=== PATIENT | male | born 1935 | race Hispanic/Latino ===

== ENCOUNTER 2018-10-20 13:04 | Inpatient (IN) | payer MEDICARE, MEDICAID ==
[2018-10-20 13:04] VITALS: BMI 28.3
--- NOTE | 2018-10-20 15:01 | ED PDOC ---
HPI: Back Time Seen by Provider: 10/20/18 13:19 Chief Complaint (Nursing): Back Pain Chief Complaint (Provider): Back Pain History Per: Patient History/Exam Limitations: no limitations Onset/Duration Of Symptoms: Persistent Current Symptoms Are (Timing): Still Present Quality Of Discomfort: "Pain" Pain Scale Rating Of: 9 Previous Symptoms: Back Pain Associated Symptoms: None Additional Complaint(s): 83 year old male with a history sciatica, herniated lumbar discs, diabetes and HTN presents to the ED with recurrent sciatica pain. Patient received an epidural shot less than one month ago with improvement, but not resolution of symptoms. This morning, when he tried to stand, the pain became severe and he was unable to bear weight on his legs. Patient states the pain is shooting down his right leg. He reports taking Tylenol today with no relief and he last took Advil yesterday. Patient saw his PMD a week ago and mentioned acute right calf pain and cramping on getting out of the car. He was then referred for a lower extremity US which he has not done yet. Denies fecal or urinary incontinence, fever, chills and leg weakness. PMD: Ronnie Webster - Risk Factors AAA Risk Factors: Pos: Older Than 49 Years Of Age, Hypertension Past Medical History Reviewed: Historical Data, Nursing Documentation, Vital Signs Vital Signs: Last Vital Signs Temp 97.8 F 10/20/18 13:11 Pulse 66 10/20/18 13:11 Resp 16 10/20/18 13:11 BP 195/91 H 10/20/18 13:11 Pulse Ox 99 10/20/18 13:11 Primary Care Provider: Ronnie Webster - Medical History PMH: Gastritis, HTN Denies: Chronic Kidney Disease - Surgical History Surgical History: Cholecystectomy - Family History Family History: States: Unknown Family Hx - Social History Ex-Smoker (has not smoked in the last 12 months): Yes - Home Medications Home Medications: Ambulatory Orders Medication Instructions Recorded Aspirin [Ecotrin] 81 mg PO DAILY 10/20/18 Cu/Se/Vit A/Vit C/Vit E/Zinc 1 tab PO DAILY 10/20/18 [Ocuvite] Docusate [Colace] 200 mg PO HS 10/20/18 Esomeprazole Magnesium [Nexium] 40 mg PO DAILY 10/20/18 Glipizide [Glipizide ER] 10 mg PO DAILY 10/20/18 Nebivolol [Bystolic] 10 mg PO DAILY 10/20/18 Pioglitazone [Actos] 15 mg PO DAILY 10/20/18 Travoprost [Travatan Z] 1 drop EACHEYE HS 10/20/18 - Allergies Allergies/Adverse Reactions: Allergies Allergy/AdvReac Type Severity Reaction Status Date / Time ciprofloxacin Allergy ANAPHYLAXIS Verified 10/20/18 13:11 Review of Systems ROS Statement: Except As Marked, All Systems Reviewed And Found Negative Constitutional: Negative for: Fever, Chills, Weakness Genitourinary Male: Negative for: Incontinence (fecal or urinary) Musculoskeletal: Positive for: Back Pain, Leg Pain Physical Exam - Reviewed Nursing Documentation Reviewed: Yes Vital Signs Reviewed: Yes - Physical Exam Appears: Positive for: Uncomfortable Back: Positive for: Decreased ROM (with flexion of the back due to pain), Other (tenderness on palpation to right lumbar paravertebral area with tenderness to the right buttock also) Extremity: Positive for: Normal ROM (Normal flexion and extension of bilateral hips and knees ), Calf Tenderness (tenderness on palpation to right calf noted; no cords or nodules noted), Other (sensation to light touch intact to bilateral lower extremities). Negative for: Swelling Neurological/Psych: Positive for: Awake, Alert, Normal Tone, Oriented (x 3). Negative for: Motor/Sensory Deficits - Laboratory Results Result Diagrams: 10/20/18 16:48 10/20/18 16:48 - ECG O2 Sat by Pulse Oximetry: 99 (RA) Pulse Ox Interpretation: Normal Medical Decision Making Medical Decision Makin:05 MDM: Toradol 30 mg IM x 1 Flexeril 10 mg PO x 1 Bilateral LE venous Duplex US 15:40 Upon re-evaluation, the patient reports no improvement of pain. Lidoderm patch and Tylenol 975 mg PO x 1 ordered. IV insertion, CBC, CMP and mag ordered. 16:20 US FINDINGS: COMMON FEMORAL VEIN: Right CFV: Unremarkable. Left CFV: Unremarkable. SUPERFICIAL FEMORAL VEIN: Right SFV: Unremarkable. Left SFV: Unremarkable. POPLITEAL VEIN: Right Popliteal: Unremarkable. Left Popliteal: Unremarkable. POSTERIOR TIBIAL VEIN: Right PTV: Unremarkable. Left PTV: Unremarkable. OTHER FINDINGS: None. IMPRESSION: No sonographic evidence of deep venous thrombosis bilateral lower extremities. 16:45 Pain is unchanged. Morphine 2 mg IV ordered. Case discussed with patient's PMD, Dr. Gillis, who will accept admission for intractable back pain. He requests Dr. Barker for orthopedic consult Consult is placed, awaiting return call. 16:55: I spoke with Dr. Barker who will see patient tomorrow. Scribe Attestation: Documented by Tess Bustamante, acting as a scribe Tamera Magaña Provider Scribe Attestation: All medical record entries made by the Scribe were at my direction and personally dictated by me. I have reviewed the chart and agree that the record accurately reflects my personal performance of the history, physical exam, medical decision making, and the department course for this patient. I have also personally directed, reviewed, and agree with the discharge instructions and disposition. Disposition - Clinical Impression Clinical Impression: Intractable low back pain - Patient ED Disposition Is Patient to be Admitted: Yes - Disposition Disposition: Transfer of Care Disposition Time: 17:03 Condition: IMPROVED - Pt Status Changed To: Hospital Disposition Of: Inpatient - Admit Certification Admit to Inpatient:: After my assessment, the patient will require hospitaliz ation for at least two midnights. This is because of the severity of symptoms shown, intensity of services needed, and/or the medical risk in this patient being treated as an outpatient.
[2018-10-20] MEDS ORDERED: Lidocaine 5% Patch TD ONE (15:18)
[2018-10-20] MEDS: Lidocaine 5% Patch TD SCH (15:24)
--- NOTE | 2018-10-20 16:48 | US ---
Date of service: 10/20/2018 PROCEDURE: Bilateral lower extremity venous duplex Doppler. HISTORY: acute RLE cramp/pain COMPARISON: None available. TECHNIQUE: Bilateral common and superficial femoral, popliteal and posterior tibial veins were evaluated. Flow was assessed with color Doppler, graded compressibility, assessment of phasic flow and augmentation response. FINDINGS: COMMON FEMORAL VEIN: Right CFV: Unremarkable. Left CFV: Unremarkable. SUPERFICIAL FEMORAL VEIN: Right SFV: Unremarkable. Left SFV: Unremarkable. POPLITEAL VEIN: Right Popliteal: Unremarkable. Left Popliteal: Unremarkable. POSTERIOR TIBIAL VEIN: Right PTV: Unremarkable. Left PTV: Unremarkable. OTHER FINDINGS: None. IMPRESSION: No sonographic evidence of deep venous thrombosis bilateral lower extremities.
[2018-10-20 16:52] LABS: BASO # 0.1 K/uL (0.0-0.2); BASO % 0.9 % (0.0-2.0); EOS # 0.1 K/uL (0.0-0.7); EOS % 1.8 % (0.0-4.0); HEMOGLOBIN 14.2 g/dL (12.0-18.0); LYMPH # 1.1 K/uL (1.0-4.3); LYMPH % 17.5 % (20.0-40.0); MEAN CELL VOLUME 85.4 fl (80.0-94.0); MEAN CORPUSCULAR HEMOGLOBIN 29.7 pg (27.0-31.0); MEAN CORPUSCULAR HGB CONC 34.8 g/dL (33.0-37.0); MEAN PLATELET VOLUME 8.9 fl (7.2-11.7); MONO # 0.5 K/uL (0.0-0.8); MONO % 7.1 % (0.0-10.0); NEUT # 4.6 K/uL (1.8-7.0); NEUT % 72.7 % (50.0-75.0); NRBC % 0.1 % (0.0-0.0); RBC 4.79 Mil/uL (4.40-5.90); RED CELL DISTRIBUTION WIDTH 15.3 % (11.5-14.5); WHITE BLOOD COUNT 6.3 K/uL (4.8-10.8)
[2018-10-20 17:03] LABS: ALB/GLOB RATIO 1.3 (1.0-2.1); ALT/SGPT 30 U/L (21-72); AST/SGOT 32 U/L (17-59); BLOOD UREA NITROGEN 23 mg/dl (9-20); CALCIUM 9.4 mg/dL (8.4-10.2); GFR NON-AFRICAN AMERICAN > 60
--- NOTE | 2018-10-20 19:50 | CP.PCM.HP ---
History of Present Illness - History of Present Illness History of Present Illness: 83 year old male with a history sciatica, herniated lumbar discs, diabetes and HTN presents to the ED with recurrent sciatica pain. Patient received an epidural shot less than one month ago with minimal improvement . This morning, when he tried to stand, the pain became severe and he was unable to bear weight on his legs. Patient states the pain is shooting down his right leg. He reports taking Tylenol today with no relief and he last took Advil yesterday. Pt has had sciatica since 08/06 PMH: DMII Hypertension Hyperlipidemia COPD CA Prostate Present on Admission - Present on Admission Any Indicators Present on Admission: No Past Patient History - Past Medical History & Family History Past Medical History?: Yes - Past Social History Smoking Status: Former Smoker - CARDIAC Hx Hypertension: Yes - NEUROLOGICAL Hx Neurological Disorder: No - HEENT Hx HEENT Problems: Yes Hx Glaucoma: Yes - RENAL Hx Chronic Kidney Disease: No - ENDOCRINE/METABOLIC Hx Endocrine Disorders: Yes Hx Diabetes Mellitus Type 2: Yes - INTEGUMENTARY Hx Dermatological Problems: No - MUSCULOSKELETAL/RHEUMATOLOGICAL Hx Musculoskeletal Disorders: No Hx Falls: No - GASTROINTESTINAL Hx Gastritis: Yes - GENITOURINARY/GYNECOLOGICAL Hx Genitourinary Disorders: Yes Hx Prostate Cancer: Yes - PSYCHIATRIC Hx Psychophysiologic Disorder: No Hx Substance Use: No - SURGICAL HISTORY Hx Cholecystectomy: Yes - ANESTHESIA Hx Anesthesia: Yes Hx Anesthesia Reactions: No Hx Malignant Hyperthermia: No Meds Allergies/Adverse Reactions: Allergies Allergy/AdvReac Type Severity Reaction Status Date / Time ciprofloxacin Allergy ANAPHYLAXIS Verified 10/20/18 13:11 Results - Vital Signs Recent Vital Signs: Last Vital Signs Temp 98.9 F 10/20/18 19:01 Pulse 6 L 10/20/18 19:01 Resp 20 10/20/18 19:01 BP 170/76 H 10/20/18 19:01 Pulse Ox 95 10/20/18 19:01 - Labs Result Diagrams: 10/20/18 16:48 10/20/18 16:48 Labs: Laboratory Results - last 24 hr 10/20/18 10/20/18 16:48 16:48 WBC 6.3 RBC 4.79 Hgb 14.2 Hct 40.9 MCV 85.4 D MCH 29.7 MCHC 34.8 RDW 15.3 H Plt Count 171 D MPV 8.9 Neut % (Auto) 72.7 Lymph % (Auto) 17.5 L [place] % (Auto) 7.1 Eos % (Auto) 1.8 Baso % (Auto) 0.9 Neut # (Auto) 4.6 Lymph # (Auto) 1.1 [place] # (Auto) 0.5 Eos # (Auto) 0.1 Baso # (Auto) 0.1 Sodium 137 Potassium 4.1 Chloride 105 Carbon Dioxide 22 Anion Gap 14 BUN 23 H Creatinine 1.1 Est GFR ( Amer) > 60 Est GFR (Non-Af Amer) > 60 Random Glucose 108 Calcium 9.4 Total Bilirubin 1.5 H AST 32 ALT 30 Alkaline Phosphatase 77 Total Protein 7.1 Albumin 4.0 Globulin 3.0 Albumin/Globulin Ratio 1.3 Assessment & Plan (1) Sciatica associated with disorder of lumbar spine Status: Acute (2) Benign essential hypertension Status: Acute (3) DM w/o complication type II Status: Acute (4) Mixed hyperlipidemia Status: Acute (5) S/P cholecystectomy Status: Acute - Date & Time Date: 10/20/18 Time: 21:08
[2018-10-20] MEDS: Patient's Own Med (Travoprost [Travatan Z] 1 DROP) EACHEYE SCH (22:19)
[2018-10-20] MEDS: GlipiZIDE 10 mg SR Tab PO SCH (23:00)
[2018-10-21 06:25] LABS: BASO % 0.3 % (0.0-2.0); EOS # 0.2 K/uL (0.0-0.7); EOS % 5.2 % (0.0-4.0); HEMOGLOBIN 13.3 g/dL (12.0-18.0); LYMPH % 22.7 % (20.0-40.0); MEAN CELL VOLUME 85.8 fl (80.0-94.0); MEAN CORPUSCULAR HEMOGLOBIN 28.8 pg (27.0-31.0); MEAN CORPUSCULAR HGB CONC 33.5 g/dL (33.0-37.0); MEAN PLATELET VOLUME 9.1 fl (7.2-11.7); MONO # 0.2 K/uL (0.0-0.8); MONO % 4.9 % (0.0-10.0); NEUT # 3.1 K/uL (1.8-7.0); NEUT % 66.9 % (50.0-75.0); NRBC % 0.1 % (0.0-0.0); RBC 4.64 Mil/uL (4.40-5.90); RED CELL DISTRIBUTION WIDTH 15.4 % (11.5-14.5); WHITE BLOOD COUNT 4.6 K/uL (4.8-10.8)
[2018-10-21 06:36] LABS: BLOOD UREA NITROGEN 21 mg/dl (9-20); CALCIUM 9.1 mg/dL (8.4-10.2); GFR NON-AFRICAN AMERICAN 53
[2018-10-21] MEDS: Lidocaine 5% Patch TD SCH (08:21)
[2018-10-21] MEDS: Pantoprazole 40 mg EC Tab PO SCH (08:23)
[2018-10-21] MEDS: GlipiZIDE 10 mg SR Tab PO SCH ×2 (08:24→16:44)
--- NOTE | 2018-10-21 08:44 | CP.PCM.CON ---
History of Present Illness - History of Present Illness History of Present Illness: Orthopedic consultation Dr. Barker 83M complains of severe intractable pain in low back and down right leg with inability to ambulate due to the pain. He has known lumbar herniated disc and has had 2 LESI for this, with temporary relief of symptoms. He says the pain is significantly worse that last evaluation, so he came to the ER. Denies change in bowel/bladder. Pain is severe and shoots down back of right leg. Denies numbness/tingling. Denies trauma and falls. PMH: DM, HTN, HLD, COPD, prostate CA Review of Systems - Review of Systems All systems: reviewed and no additional remarkable complaints except - Musculoskeletal Musculoskeletal: As Per HPI - Neurological Neurological: As Per HPI - Hematologic/Lymphatic Hematologic: absent: As Per HPI, Easy Bleeding, Easy Bruising, Lymphadenopathy, Other Past Patient History - Past Medical History & Family History Past Medical History?: Yes Past Family History: Reviewed and not pertinent - Past Social History Smoking Status: Former Smoker - CARDIAC Hx Hypertension: Yes - NEUROLOGICAL Hx Neurological Disorder: No - HEENT Hx HEENT Problems: Yes Hx Glaucoma: Yes - RENAL Hx Chronic Kidney Disease: No - ENDOCRINE/METABOLIC Hx Endocrine Disorders: Yes Hx Diabetes Mellitus Type 2: Yes - INTEGUMENTARY Hx Dermatological Problems: No - MUSCULOSKELETAL/RHEUMATOLOGICAL Hx Musculoskeletal Disorders: No Hx Falls: No - GASTROINTESTINAL Hx Gastritis: Yes - GENITOURINARY/GYNECOLOGICAL Hx Genitourinary Disorders: Yes Hx Prostate Cancer: Yes - PSYCHIATRIC Hx Psychophysiologic Disorder: No Hx Substance Use: No - SURGICAL HISTORY Hx Cholecystectomy: Yes - ANESTHESIA Hx Anesthesia: Yes Hx Anesthesia Reactions: No Hx Malignant Hyperthermia: No Meds Allergies/Adverse Reactions: Allergies Allergy/AdvReac Type Severity Reaction Status Date / Time ciprofloxacin Allergy ANAPHYLAXIS Verified 10/21/18 11:57 - Medications Medications: Current Medications Aspirin (Ecotrin) 81 mg PO DAILY [facility] Last Admin: 10/21/18 08:21 Dose: 81 mg Docusate Sodium (Colace) 200 mg PO [facility] Last Admin: 10/20/18 22:19 Dose: 200 mg Glipizide (Glucotrol Xl) 10 mg PO DAILY@1700 [facility] Home Med (Travoprost [Travatan Z]) 1 drop EACHEYE [facility] Last Admin: 10/20/18 22:19 Dose: 1 drop Lidocaine (Lidoderm) 1 ea TD DAILY [facility] Last Admin: 10/21/18 08:21 Dose: 1 ea Metoprolol Tartrate (Lopressor) 50 mg PO Q12 [facility] Last Admin: 10/21/18 08:24 Dose: 50 mg Morphine Sulfate (Morphine) 2 mg IVP Q4 PRN PRN Reason: Pain, moderate (4-7) Last Admin: 10/21/18 05:10 Dose: 2 mg Pantoprazole Sodium (Protonix Ec Tab) 40 mg PO DAILY [facility] Last Admin: 10/21/18 08:23 Dose: 40 mg Pioglitazone HCl (Actos) 15 mg PO DAILY [facility] Last Admin: 10/21/18 08:13 Dose: 15 mg Physical Exam - Constitutional Appears: Well, In Acute Distress - Head Exam Head Exam: ATRAUMATIC - Neck Exam Neck exam: Positive for: Full Rom, Normal Inspection - Respiratory Exam Respiratory Exam: NORMAL BREATHING PATTERN - Cardiovascular Exam Additional comments: +DP/PT pulses - Expanded Lower Extremities Exam Right Ankle exam: FULL ROM, NORMAL INSPECTION Neuro vacular tendon exam: no vascular compromise (calves soft NT neg homans) - Neurological Exam Neurological exam: Alert, Oriented x3 - Psychiatric Exam Psychiatric exam: Normal Affect, Normal Mood - Skin Skin Exam: Dry, Intact, Normal Color, Warm Results - Vital Signs Recent Vital Signs: Last Vital Signs Temp 98.7 F 10/21/18 08:03 Pulse 65 10/21/18 08:24 Resp 18 10/21/18 08:03 BP 174/79 H 10/21/18 08:24 Pulse Ox 93 L 10/21/18 08:03 - Labs Result Diagrams: 10/21/18 05:50 10/21/18 05:50 Labs: Laboratory Results - last 24 hr 10/20/18 10/20/18 10/20/18 16:48 16:48 21:09 WBC 6.3 RBC 4.79 Hgb 14.2 Hct 40.9 MCV 85.4 D MCH 29.7 MCHC 34.8 RDW 15.3 H Plt Count 171 D MPV 8.9 Neut % (Auto) 72.7 Lymph % (Auto) 17.5 L [place] % (Auto) 7.1 Eos % (Auto) 1.8 Baso % (Auto) 0.9 Neut # (Auto) 4.6 Lymph # (Auto) 1.1 [place] # (Auto) 0.5 Eos # (Auto) 0.1 Baso # (Auto) 0.1 Sodium 137 Potassium 4.1 Chloride 105 Carbon Dioxide 22 Anion Gap 14 BUN 23 H Creatinine 1.1 Est GFR ( Amer) > 60 Est GFR (Non-Af Amer) > 60 POC Glucose (mg/dL) 214 H Random Glucose 108 Calcium 9.4 Total Bilirubin 1.5 H AST 32 ALT 30 Alkaline Phosphatase 77 Total Protein 7.1 Albumin 4.0 Globulin 3.0 Albumin/Globulin Ratio 1.3 10/21/18 10/21/18 10/21/18 05:41 05:50 05:50 WBC 4.6 L RBC 4.64 Hgb 13.3 Hct 39.8 MCV 85.8 MCH 28.8 MCHC 33.5 RDW 15.4 H Plt Count 157 MPV 9.1 Neut % (Auto) 66.9 Lymph % (Auto) 22.7 [place] % (Auto) 4.9 Eos % (Auto) 5.2 H Baso % (Auto) 0.3 Neut # (Auto) 3.1 Lymph # (Auto) 1.0 [place] # (Auto) 0.2 Eos # (Auto) 0.2 Baso # (Auto) 0.0 Sodium 139 Potassium 3.9 Chloride 105 Carbon Dioxide 26 Anion Gap 12 BUN 21 H Creatinine 1.3 Est GFR ( Amer) > 60 Est GFR (Non-Af Amer) 53 POC Glucose (mg/dL) 78 Random Glucose 79 Calcium 9.1 Total Bilirubin AST ALT Alkaline Phosphatase Total Protein Albumin Globulin Albumin/Globulin Ratio - EKG Data EKG comments: atient Name / ID : MIKE RIVERA M / [id number] Exam Date : 10/21/2018 10:18:38 ( Approved ) Study Comment : Sex / Age : M / 83Y Creator : Jai Dickson MD Dictator : Jai Dickson MD Sox Analyst : Special Tax Auditor : Jai Dickson MD Approver2 : Report Date : 10/21/2018 11:50:34 My Comment : Date of service: 10/21/2018 PROCEDURE: MR LUMBAR SPINE WITHOUT CONTRAST HISTORY: sciatica COMPARISON: Lumbar spine MRI without contrast 08/20/2018 as well as 08/10/2015. TECHNIQUE: Multiecho multiplanar sequences were performed through the lumbar spine without the use of intravenous contrast. FINDINGS: Normal lumbar lordosis interrupted by stable grade 1 spondylolisthesis L5-S1. Vertebral body heights are preserved. Abnormal increased long TR signal is seen at the L4 vertebral body once again of uncertain origin. While this could represent an atypical benign hemangioma and is unchanged compared prior lumbar spine MRI 08/10/2015 rendering this a benign process. Conus medullaris unremarkable at the level of L1. Prevertebral and paraspinal soft tissues remain unremarkable. Note is made once again of multiple bilateral renal cysts greater the left and right kidney only partially captured in this examination. T12-L1: No disc herniation, spinal canal stenosis or neural foraminal narrowing. L1-2: No disc herniation, spinal canal stenosis or neural foraminal narrowing. L2-3: No disc herniation, spinal canal stenosis or neural foraminal narrowing. L3-4: No disc herniation, spinal canal stenosis or neural foraminal narrowing. Limited disc bulging is again seen inverting the ventral thecal sac without st enosis. L4-5: Prior disc herniation appears desiccated and is dark in signal across numerous sequences impinging the exiting right L4 nerve root from below. Disc herniation may have increased in size which would indicate further extrusion in the interval with the right lateral recess completely obliterated and portion of the disc causes moderate to severe right neural foraminal stenosis. Additional minimal disc extrusion is suggested at the left lateral recess as well in the posterior epidural space. Both disc herniations are extruded cephalad. Due to large posterior disc bulge and gross facet joint degenerative change including joint effusions, there is a severe central canal stenosis inferior to the level of the disc herniations at the level of the disc interspace., posterior element degenerative arthropathy including synovial cysts contribute to stenosis at L4- 5. L5-S1: Facet joint arthropathy is advanced with no disc herniation at this level. Limited disc bulge is reiterated with limited grade 1 spondylolisthesis due to bilateral spondylolysis. Annular tear reiterated. While there is some elongation of the central canal and neural foramina, no significant stenosis is appreciated in the interval. OTHER FINDINGS: None. IMPRESSION: 1. Likely added extruded disc herniation is appreciated cephalad at the right lateral recess and neural foramen causing moderate to severe right neural foraminal stenosis and obliteration of the right lateral recess superiorly. Rig ht exiting L4 nerve root is likely impinged. Further, moderate to severe degenerative central stenosis appreciated more inferiorly at the disc space proper, inferior to the disc herniation. 2. Stable grade 1 spondylolisthesis L5-S1 with bilateral L5 spondylolysis without significant stenosis. - Impressions Impression: Patient Name / ID : MIKE Garcia / [id number] Exam Date : 10/20/2018 15:47:25 ( Approved ) Study Comment : Sex / Age : M / 83Y Creator : shukri hilton Dictator : Jai Dickson MD Sox Analyst : Special Tax Auditor : Jai Dickson MD Approver2 : Report Date : 10/20/2018 16:19:33 My Comment : Date of service: 10/20/2018 PROCEDURE: Bilateral lower extremity venous duplex Doppler. HISTORY: acute RLE cramp/pain COMPARISON: None available. TECHNIQUE: Bilateral common and superficial femoral, popliteal and posterior tibial veins were evaluated. Flow was assessed with color Doppler, graded compressibility, assessment of phasic flow and augmentation response. FINDINGS: COMMON FEMORAL VEIN: Right CFV: Unremarkable. Left CFV: Unremarkable. SUPERFICIAL FEMORAL VEIN: Right SFV: Unremarkable. Left SFV: Unremarkable. POPLITEAL VEIN: Right Popliteal: Unremarkable. Left Popliteal: Unremarkable. POSTERIOR TIBIAL VEIN: Right PTV: Unremarkable. Left PTV: Unremarkable. OTHER FINDINGS: None. IMPRESSION: No sonographic evidence of deep venous thrombosis bilateral lower extremities. Accession No. : [id number] Patient Name / ID : MIKE Garcia / [id number] Exam Date : 08/20/2018 14:23:39 ( Approved ) Study Comment : Sex / Age : M / 82Y Creator : Jai Dickson MD Dictator : Jai Dickson MD Sox Analyst : Special Tax Auditor : Jai Dickson MD Approver2 : Report Date : 08/25/2018 13:36:10 My Comment : Date of service: 08/20/2018 PROCEDURE: MR LUMBAR SPINE WITHOUT CONTRAST HISTORY: SCIATICA COMPARISON: None available. TECHNIQUE: Multiecho multiplanar sequences were performed through the lumbar spine without the use of intravenous contrast. FINDINGS: Lordotic curvature is interrupted minimally by a stable grade 1 spondylolisthesis once again with L5 minimally anterior to S1 due to bilateral spondylolysis. No additional spondylolisthesis. No additional fracture appreciable. Vertebral body heights are preserved. Stable sclerotic lesion unchanged at the left side of the L5 vertebral body with an atypical likely benign hemangioma at L4 once again as well. Conus medullaris unremarkable at the level of L1 once again. Prevertebral and paraspinal soft tissues remain unremarkable. Incidental note is made of lower pole bilateral renal hyperintense T2 foci suggestive of cysts. T12-L1: No disc herniation, spinal canal stenosis or neural foraminal narrowing. L1-2: No disc herniation, spinal canal stenosis or neural foraminal narrowing. L2-3: Desiccated disc greater without disc herniation, central canal or neural foraminal stenosis. Facet joint arthropathy is moderate but symmetric. L3-4: No disc herniation. [id number] facet arthropathy is appreciated bilate rally. No significant central canal or neural foraminal stenosis. L4-5: There is 7.7 x 5.5 x 11.7 mm (transverse by anteroposterior by superoinferior dimensions) soft tissue lesion appearing to follow intervertebral disc signal intensity across all sequences identified at the right recess posterior to the mid inferior posterior borders of the L4 vertebral body. This is closer to the L4-5 than L5-S1 intervertebral disc space and is felt to represent a small extruded disc herniation. This encroaches if not impinges the the L4 nerve root proximal to entry into the neural foramen. Circumferential disc osteophyte complex is appreciated inverting the ventral thecal sac and combines with gross facet joint degenerative arthropathy, which has worsened in the interval, resulting in moderate central canal stenosis. No significant neural foraminal stenosis bilaterally. L5-S1: One spondylolisthesis is minimal and minimal disc bulging identified. No disc herniation. No significant neural foraminal stenosis with neural foramen appearing somewhat elongated. Minimal annular tear at the posterior margins of the vertebral disc is noted. OTHER FINDINGS: None. IMPRESSION: 1. Ytho-we-wumlvvao extruded disc herniation is identified at the right lateral recess posterior to L4 and above the L4-5 disc interspace in coating if not impinging the descending right L4 nerve root proximal to its neural foramen further, degenerative central canal stenosis is moderate in severity at L4-5 due to circumferential disc osteophyte complex and bilateral dose facet joint degenerative arthropathy. 2. No definite additional disc herniation. 3. No significant neural foraminal stenosis throughout the exam. Stable L5-S1 posterior disc annular tear. Stable L5-S1 spondylolysis, grade 1. Assessment & Plan (1) Herniation of right side of L4-L5 intervertebral disc Assessment and Plan: case discussed with Dr. Barker recommend pain mgmt consultation Dr. Mccord PT VTE proph new MRI pending Addendum: new MRI and pain mgmt consult Dr. Mccord appreciated significant interval worsening of herniated disc with severe right neural foraminal stenosis now and severe central canal stenosis at that level this is outside of the scope of Dr. Barker's practice, recommend spine surgery consultation at this time d/w Dr. Barker, agrees with above Status: Acute (2) Spondylolisthesis at L5-S1 level Status: Acute (3) Lumbar spinal stenosis Status: Acute (4) Intractable low back pain Status: Acute
[2018-10-21] MEDS ORDERED: GlipiZIDE 10 mg SR Tab PO SCH (09:00)
--- NOTE | 2018-10-21 09:44 | CP.PCM.CON ---
History of Present Illness - History of Present Illness History of Present Illness: Patient presents with acute on chronic lower back pain and has been referred for pain management. He developed the pain in Jul, and has had two epidurals by Dr. Loredo with moderate and transient relief. He awoke yesterday with severe pain, in the right buttock, and also right lower lateral calf, to the point that he couldn't walk. As an outpatient, he tried Percocet without relief. Toradol and Morphine IV haven't helped significantly since admission. MRI from August showed extruded disc at L4-5, new MRI has been ordered and is pending. Past Patient History - Past Medical History & Family History Past Medical History?: Yes - Past Social History Smoking Status: Former Smoker - CARDIAC Hx Hypertension: Yes - NEUROLOGICAL Hx Neurological Disorder: No - HEENT Hx HEENT Problems: Yes Hx Glaucoma: Yes - RENAL Hx Chronic Kidney Disease: No - ENDOCRINE/METABOLIC Hx Endocrine Disorders: Yes Hx Diabetes Mellitus Type 2: Yes - INTEGUMENTARY Hx Dermatological Problems: No - MUSCULOSKELETAL/RHEUMATOLOGICAL Hx Musculoskeletal Disorders: No Hx Falls: No - GASTROINTESTINAL Hx Gastritis: Yes - GENITOURINARY/GYNECOLOGICAL Hx Genitourinary Disorders: Yes Hx Prostate Cancer: Yes - PSYCHIATRIC Hx Psychophysiologic Disorder: No Hx Substance Use: No - SURGICAL HISTORY Hx Cholecystectomy: Yes - ANESTHESIA Hx Anesthesia: Yes Hx Anesthesia Reactions: No Hx Malignant Hyperthermia: No Meds Allergies/Adverse Reactions: Allergies Allergy/AdvReac Type Severity Reaction Status Date / Time ciprofloxacin Allergy ANAPHYLAXIS Verified 10/20/18 13:11 - Medications Medications: Current Medications Aspirin (Ecotrin) 81 mg PO DAILY [facility] Last Admin: 10/21/18 08:21 Dose: 81 mg Docusate Sodium (Colace) 200 mg PO [facility] Last Admin: 10/20/18 22:19 Dose: 200 mg Glipizide (Glucotrol Xl) 10 mg PO DAILY@1700 [facility] Home Med (Travoprost [Travatan Z]) 1 drop EACHEYE [facility] Last Admin: 10/20/18 22:19 Dose: 1 drop Lidocaine (Lidoderm) 1 ea TD DAILY [facility] Last Admin: 10/21/18 08:21 Dose: 1 ea Metoprolol Tartrate (Lopressor) 50 mg PO Q12 [facility] Last Admin: 10/21/18 08:24 Dose: 50 mg Morphine Sulfate (Morphine) 2 mg IVP Q4 PRN PRN Reason: Pain, moderate (4-7) Last Admin: 10/21/18 05:10 Dose: 2 mg Pantoprazole Sodium (Protonix Ec Tab) 40 mg PO DAILY [facility] Last Admin: 10/21/18 08:23 Dose: 40 mg Pioglitazone HCl (Actos) 15 mg PO DAILY [facility] Last Admin: 10/21/18 08:13 Dose: 15 mg Physical Exam - Back Exam Back exam: paraspinal tenderness, vertebral tenderness Additional comments: SLR negative on the right. Results - Vital Signs Recent Vital Signs: Last Vital Signs Temp 98.7 F 10/21/18 08:03 Pulse 65 10/21/18 08:24 Resp 18 10/21/18 08:03 BP 174/79 H 10/21/18 08:24 Pulse Ox 93 L 10/21/18 08:03 - Labs Result Diagrams: 10/21/18 05:50 10/21/18 05:50 Labs: Laboratory Results - last 24 hr 10/20/18 10/20/18 10/20/18 16:48 16:48 21:09 WBC 6.3 RBC 4.79 Hgb 14.2 Hct 40.9 MCV 85.4 D MCH 29.7 MCHC 34.8 RDW 15.3 H Plt Count 171 D MPV 8.9 Neut % (Auto) 72.7 Lymph % (Auto) 17.5 L [place] % (Auto) 7.1 Eos % (Auto) 1.8 Baso % (Auto) 0.9 Neut # (Auto) 4.6 Lymph # (Auto) 1.1 [place] # (Auto) 0.5 Eos # (Auto) 0.1 Baso # (Auto) 0.1 Sodium 137 Potassium 4.1 Chloride 105 Carbon Dioxide 22 Anion Gap 14 BUN 23 H Creatinine 1.1 Est GFR ( Amer) > 60 Est GFR (Non-Af Amer) > 60 POC Glucose (mg/dL) 214 H Random Glucose 108 Calcium 9.4 Total Bilirubin 1.5 H AST 32 ALT 30 Alkaline Phosphatase 77 Total Protein 7.1 Albumin 4.0 Globulin 3.0 Albumin/Globulin Ratio 1.3 10/21/18 10/21/18 10/21/18 05:41 05:50 05:50 WBC 4.6 L RBC 4.64 Hgb 13.3 Hct 39.8 MCV 85.8 MCH 28.8 MCHC 33.5 RDW 15.4 H Plt Count 157 MPV 9.1 Neut % (Auto) 66.9 Lymph % (Auto) 22.7 [place] % (Auto) 4.9 Eos % (Auto) 5.2 H Baso % (Auto) 0.3 Neut # (Auto) 3.1 Lymph # (Auto) 1.0 [place] # (Auto) 0.2 Eos # (Auto) 0.2 Baso # (Auto) 0.0 Sodium 139 Potassium 3.9 Chloride 105 Carbon Dioxide 26 Anion Gap 12 BUN 21 H Creatinine 1.3 Est GFR ( Amer) > 60 Est GFR (Non-Af Amer) 53 POC Glucose (mg/dL) 78 Random Glucose 79 Calcium 9.1 Total Bilirubin AST ALT Alkaline Phosphatase Total Protein Albumin Globulin Albumin/Globulin Ratio Assessment & Plan (1) Herniation of right side of L4-L5 intervertebral disc Assessment and Plan: 83 yo man w/ lumbar radiculopathy. Patient may try another injection after the new MRI, though surgery has to be a consideration as he's failed two outpatient epidural already. - start Neurontin 100mg q8h - continue Morphine, increase dosage - pending new MRI result, would consider repeat epidural, likely Friday - if MRI showed severe stenosis, neurosurgery may need to be consulted Status: Acute
--- NOTE | 2018-10-21 11:56 | MRI ---
Date of service: 10/21/2018 PROCEDURE: MR LUMBAR SPINE WITHOUT CONTRAST HISTORY: sciatica COMPARISON: Lumbar spine MRI without contrast 08/20/2018 as well as 08/10/2015. TECHNIQUE: Multiecho multiplanar sequences were performed through the lumbar spine without the use of intravenous contrast. FINDINGS: Normal lumbar lordosis interrupted by stable grade 1 spondylolisthesis L5-S1. Vertebral body heights are preserved. Abnormal increased long TR signal is seen at the L4 vertebral body once again of uncertain origin. While this could represent an atypical benign hemangioma and is unchanged compared prior lumbar spine MRI 08/10/2015 rendering this a benign process. Conus medullaris unremarkable at the level of L1. Prevertebral and paraspinal soft tissues remain unremarkable. Note is made once again of multiple bilateral renal cysts greater the left and right kidney only partially captured in this examination. T12-L1: No disc herniation, spinal canal stenosis or neural foraminal narrowing. L1-2: No disc herniation, spinal canal stenosis or neural foraminal narrowing. L2-3: No disc herniation, spinal canal stenosis or neural foraminal narrowing. L3-4: No disc herniation, spinal canal stenosis or neural foraminal narrowing. Limited disc bulging is again seen inverting the ventral thecal sac without stenosis. L4-5: Prior disc herniation appears desiccated and is dark in signal across numerous sequences impinging the exiting right L4 nerve root from below. Disc herniation may have increased in size which would indicate further extrusion in the interval with the right lateral recess completely obliterated and portion of the disc causes moderate to severe right neural foraminal stenosis. Additional minimal disc extrusion is suggested at the left lateral recess as well in the posterior epidural space. Both disc herniations are extruded cephalad. Due to large posterior disc bulge and gross facet joint degenerative change including joint effusions, there is a severe central canal stenosis inferior to the level of the disc herniations at the level of the disc interspace., posterior element degenerative arthropathy including synovial cysts contribute to stenosis at L4-5. L5-S1: Facet joint arthropathy is advanced with no disc herniation at this level. Limited disc bulge is reiterated with limited grade 1 spondylolisthesis due to bilateral spondylolysis. Annular tear reiterated. While there is some elongation of the central canal and neural foramina, no significant stenosis is appreciated in the interval. OTHER FINDINGS: None. IMPRESSION: 1. Likely added extruded disc herniation is appreciated cephalad at the right lateral recess and neural foramen causing moderate to severe right neural foraminal stenosis and obliteration of the right lateral recess superiorly. Right exiting L4 nerve root is likely impinged. Further, moderate to severe degenerative central stenosis appreciated more inferiorly at the disc space proper, inferior to the disc herniation. 2. Stable grade 1 spondylolisthesis L5-S1 with bilateral L5 spondylolysis without significant stenosis.
[2018-10-21] MEDS: Patient's Own Med (Travoprost [Travatan Z] 1 DROP) EACHEYE SCH (21:05)
[2018-10-22] MEDS: Lidocaine 5% Patch TD SCH (08:22)
[2018-10-22] MEDS: Pantoprazole 40 mg EC Tab PO SCH (08:22)
--- NOTE | 2018-10-22 10:35 | CP.PCM.PN ---
Subjective - Date & Time of Evaluation Date of Evaluation: 10/22/18 Time of Evaluation: 10:00 - Subjective Subjective: Pt still has sciatic pain Case dicussed with Dr Barker pt needs neurosurgical consult for possible intervention MRI: L4-5 Disc herniation with impingement on L4 nerve root ++ Spinal stenosis Objective - Vital Signs/Intake and Output Vital Signs (last 24 hours): Temp Pulse Resp BP Pulse Ox 98.7 F 60 20 172/77 H 91 L 10/22/18 07:53 10/22/18 08:21 10/22/18 07:53 10/22/18 08:21 10/22/18 07:53 - Medications Medications: Current Medications Aspirin (Ecotrin) 81 mg PO DAILY [facility] Last Admin: 10/22/18 08:21 Dose: 81 mg Docusate Sodium (Colace) 200 mg PO HS [facility] Last Admin: 10/21/18 21:03 Dose: 200 mg Gabapentin (Neurontin) 100 mg PO TID [facility] Last Admin: 10/22/18 08:21 Dose: 100 mg Glipizide (Glucotrol Xl) 10 mg PO DAILY@1700 [facility] Last Admin: 10/21/18 16:44 Dose: 10 mg Home Med (Travoprost [Travatan Z]) 1 drop EACHEYE [facility] Last Admin: 10/21/18 21:05 Dose: 1 drop Lidocaine (Lidoderm) 1 ea TD DAILY [facility] Last Admin: 10/22/18 08:22 Dose: 1 ea Metoprolol Tartrate (Lopressor) 50 mg PO Q12 [facility] Last Admin: 10/22/18 08:21 Dose: 50 mg Morphine Sulfate (Morphine) 4 mg IVP Q4 PRN PRN Reason: Pain, severe (8-10) Last Admin: 10/21/18 23:07 Dose: 4 mg Pantoprazole Sodium (Protonix Ec Tab) 40 mg PO DAILY [facility] Last Admin: 10/22/18 08:22 Dose: 40 mg Pioglitazone HCl (Actos) 15 mg PO DAILY [facility] Last Admin: 10/22/18 08:20 Dose: 15 mg - Labs Labs: 10/21/18 05:50 10/21/18 05:50 Assessment and Plan (1) Herniation of right side of L4-L5 intervertebral disc Status: Acute (3) Benign essential hypertension Status: Acute (4) DM w/o complication type II Status: Acute (5) Mixed hyperlipidemia Status: Acute (6) S/P cholecystectomy Status: Acute
--- NOTE | 2018-10-22 11:37 | CARD ---
APPROVED REPORT Date of service: 10/22/2018 EKG Measurement Heart [id number] 192P5 [id number] <Conclusion> Normal sinus rhythm Inferior infarct, age undetermined Abnormal ECG
--- NOTE | 2018-10-22 11:40 | CP.PCM.CON ---
History of Present Illness - History of Present Illness History of Present Illness: SPINE Pt seen and examined. Full consult dictated. Pt sched for surgery tomorrow morning for L4-5 laminectomy/exc hnp. Past Patient History - Past Medical History & Family History Past Medical History?: Yes Past Family History: Reviewed and not pertinent - Past Social History Smoking Status: Former Smoker - CARDIAC Hx Hypertension: Yes - NEUROLOGICAL Hx Neurological Disorder: No - HEENT Hx HEENT Problems: Yes Hx Glaucoma: Yes - RENAL Hx Chronic Kidney Disease: No - ENDOCRINE/METABOLIC Hx Endocrine Disorders: Yes Hx Diabetes Mellitus Type 2: Yes - INTEGUMENTARY Hx Dermatological Problems: No - MUSCULOSKELETAL/RHEUMATOLOGICAL Hx Musculoskeletal Disorders: No Hx Falls: No - GASTROINTESTINAL Hx Gastritis: Yes - GENITOURINARY/GYNECOLOGICAL Hx Genitourinary Disorders: Yes Hx Prostate Cancer: Yes - PSYCHIATRIC Hx Psychophysiologic Disorder: No Hx Substance Use: No - SURGICAL HISTORY Hx Cholecystectomy: Yes - ANESTHESIA Hx Anesthesia: Yes Hx Anesthesia Reactions: No Hx Malignant Hyperthermia: No Meds Allergies/Adverse Reactions: Allergies Allergy/AdvReac Type Severity Reaction Status Date / Time ciprofloxacin Allergy ANAPHYLAXIS Verified 10/21/18 11:57 - Medications Medications: Current Medications Aspirin (Ecotrin) 81 mg PO DAILY [facility] Last Admin: 10/22/18 08:21 Dose: 81 mg Docusate Sodium (Colace) 200 mg PO [facility] Last Admin: 10/21/18 21:03 Dose: 200 mg Gabapentin (Neurontin) 100 mg PO TID [facility] Last Admin: 10/22/18 08:21 Dose: 100 mg Glipizide (Glucotrol Xl) 10 mg PO DAILY@1700 [facility] Last Admin: 10/21/18 16:44 Dose: 10 mg Home Med (Travoprost [Travatan Z]) 1 drop EACHEYE [facility] Last Admin: 10/21/18 21:05 Dose: 1 drop Lidocaine (Lidoderm) 1 ea TD DAILY [facility] Last Admin: 10/22/18 08:22 Dose: 1 ea Metoprolol Tartrate (Lopressor) 50 mg PO Q12 [facility] Last Admin: 10/22/18 08:21 Dose: 50 mg Morphine Sulfate (Morphine) 4 mg IVP Q4 PRN PRN Reason: Pain, severe (8-10) Last Admin: 10/22/18 10:53 Dose: 4 mg Pantoprazole Sodium (Protonix Ec Tab) 40 mg PO DAILY [facility] Last Admin: 10/22/18 08:22 Dose: 40 mg Pioglitazone HCl (Actos) 15 mg PO DAILY [facility] Last Admin: 10/22/18 08:20 Dose: 15 mg Results - Vital Signs Recent Vital Signs: Last Vital Signs Temp 98.7 F 10/22/18 07:53 Pulse 60 10/22/18 08:21 Resp 20 10/22/18 07:53 BP 172/77 H 10/22/18 08:21 Pulse Ox 91 L 10/22/18 07:53 - Labs Result Diagrams: 10/21/18 05:50 10/21/18 05:50 Labs: Laboratory Results - last 24 hr 10/21/18 10/22/18 17:30 05:54 POC Glucose (mg/dL) 105 146 H
--- NOTE | 2018-10-22 13:03 | CP.PCM.PN ---
Subjective - Date & Time of Evaluation Date of Evaluation: 10/22/18 Time of Evaluation: 13:02 - Subjective Subjective: The patient is scheduled for Surgery tomorrow AM by Dr Noe Myers LaminectomyL4-5 He is cleared for Surgery Objective - Vital Signs/Intake and Output Vital Signs (last 24 hours): Temp Pulse Resp BP Pulse Ox 98.7 F 60 20 172/77 H 91 L 10/22/18 07:53 10/22/18 08:21 10/22/18 07:53 10/22/18 08:21 10/22/18 07:53 - Medications Medications: Current Medications Aspirin (Ecotrin) 81 mg PO DAILY [facility] Last Admin: 10/22/18 08:21 Dose: 81 mg Docusate Sodium (Colace) 200 mg PO [facility] Last Admin: 10/21/18 21:03 Dose: 200 mg Gabapentin (Neurontin) 100 mg PO TID [facility] Last Admin: 10/22/18 12:42 Dose: 100 mg Glipizide (Glucotrol Xl) 10 mg PO DAILY@1700 [facility] Last Admin: 10/21/18 16:44 Dose: 10 mg Home Med (Travoprost [Travatan Z]) 1 drop EACHEYE [facility] Last Admin: 10/21/18 21:05 Dose: 1 drop Lidocaine (Lidoderm) 1 ea TD DAILY [facility] Last Admin: 10/22/18 08:22 Dose: 1 ea Metoprolol Tartrate (Lopressor) 50 mg PO Q12 [facility] Last Admin: 10/22/18 08:21 Dose: 50 mg Morphine Sulfate (Morphine) 4 mg IVP Q4 PRN PRN Reason: Pain, severe (8-10) Last Admin: 10/22/18 10:53 Dose: 4 mg Pantoprazole Sodium (Protonix Ec Tab) 40 mg PO DAILY [facility] Last Admin: 10/22/18 08:22 Dose: 40 mg Pioglitazone HCl (Actos) 15 mg PO DAILY [facility] Last Admin: 10/22/18 08:20 Dose: 15 mg - Labs Labs: 10/21/18 05:50 10/21/18 05:50 Assessment and Plan (1) Herniation of right side of L4-L5 intervertebral disc Status: Acute (3) Benign essential hypertension Status: Acute (4) DM w/o complication type II Status: Acute (5) Mixed hyperlipidemia Status: Acute (6) S/P cholecystectomy Status: Acute
--- NOTE | 2018-10-22 15:14 | CP.PCM.PN ---
Subjective - Date & Time of Evaluation Date of Evaluation: 10/22/18 Time of Evaluation: 15:14 - Subjective Subjective: patient states pain is the same down right leg, no changes overnight Objective - Vital Signs/Intake and Output Vital Signs (last 24 hours): Temp Pulse Resp BP Pulse Ox 98.7 F 60 20 172/77 H 91 L 10/22/18 09:00 10/22/18 09:00 10/22/18 09:00 10/22/18 09:00 10/22/18 09:00 - Medications Medications: Current Medications Aspirin (Ecotrin) 81 mg PO DAILY [facility] Last Admin: 10/22/18 08:21 Dose: 81 mg Docusate Sodium (Colace) 200 mg PO [facility] Last Admin: 10/21/18 21:03 Dose: 200 mg Gabapentin (Neurontin) 100 mg PO TID [facility] Last Admin: 10/22/18 12:42 Dose: 100 mg Glipizide (Glucotrol Xl) 10 mg PO DAILY@1700 [facility] Last Admin: 10/21/18 16:44 Dose: 10 mg Home Med (Travoprost [Travatan Z]) 1 drop EACHEYE [facility] Last Admin: 10/21/18 21:05 Dose: 1 drop Lidocaine (Lidoderm) 1 ea TD DAILY [facility] Last Admin: 10/22/18 08:22 Dose: 1 ea Metoprolol Tartrate (Lopressor) 50 mg PO Q12 [facility] Last Admin: 10/22/18 08:21 Dose: 50 mg Morphine Sulfate (Morphine) 4 mg IVP Q4 PRN PRN Reason: Pain, severe (8-10) Last Admin: 10/22/18 10:53 Dose: 4 mg Pantoprazole Sodium (Protonix Ec Tab) 40 mg PO DAILY [facility] Last Admin: 10/22/18 08:22 Dose: 40 mg Pioglitazone HCl (Actos) 15 mg PO DAILY [facility] Last Admin: 10/22/18 08:20 Dose: 15 mg - Labs Labs: 10/21/18 05:50 10/21/18 05:50 - Respiratory Exam Respiratory Exam: NORMAL BREATHING PATTERN - Back Exam Back Exam: paraspinal tenderness - Neurological Exam Neurological Exam: Alert, Awake, Oriented x3 Neuro motor strength exam: Left Lower Extremity: 5, Right Lower Extremity: 4 - Psychiatric Exam Psychiatric exam: Normal Affect, Normal Mood - Skin Skin Exam: Dry, Intact, Normal Color, Warm Assessment and Plan (1) Herniation of right side of L4-L5 intervertebral disc Assessment & Plan: spine consult appreciated, for OR tomorrow no orthopedic issues at this time, reconsult prn d/w DR. Barker, agrees with above Status: Acute (2) Spondylolisthesis at L5-S1 level Status: Acute (3) Lumbar spinal stenosis Status: Acute (4) Intractable low back pain Status: Acute
[2018-10-22] MEDS: GlipiZIDE 10 mg SR Tab PO SCH (17:50)
--- NOTE | 2018-10-22 18:21 | CARD ---
APPROVED REPORT Date of service: 10/22/2018 EXAM: Two-dimensional and M-mode echocardiogram with Doppler and color Doppler. Other Information Quality : GoodRhythm : NSR INDICATION LV Function:SystolicDiastolic 2D DIMENSIONS IVSd1.06 (0.7-1.1cm)LVDd4.81 (3.9-5.9cm) LVOT Diameter1.97 (1.8-2.4cm)PWd0.90 (0.7-1.1cm) IVSs1.44 (0.8-1.2cm)LVDs3.63 (2.5-4.0cm) FS (%) 24.6 %PWs1.26 (0.8-1.2cm) M-Mode DIMENSIONS Left Atrium (MM)5.44 (2.5-4.0cm)IVSd0.91 (0.7-1.1cm) Aortic Root2.79 (2.2-3.7cm)LVDd5.47 (4.0-5.6cm) Aortic Cusp Exc.1.82 (1.5-2.0cm)PWd1.12 (0.7-1.1cm) IVSs1.38 cmFS (%) 30 % LVDs3.85 (2.0-3.8cm)PWs1.21 cm Aortic Valve AoV Peak Izepvuzc623.8cm/sAoV VTI26.2cmAO Peak GR.6mmHg LVOT Peak Uebmgeka97.2cm/sLVOT VTI15.66cmAO Mean GR.3mmHg YANIRA (VMAX)0.97fe9TKY (VTI)1.00cm2 Mitral Valve MV E Xkzxhfjt99.8cm/sMV DECEL [id number] A Lmchxjfi83.3cm/s MV PYV28gpO/A ratio1.0MVA (PHT)3.70cm2 TDI Lateral E' Peak V10.84cm/sMedial E' Peak V5.54cm/sE/Lateral E'6.8 E/Medial E'13.3 Tricuspid Valve TR Peak Fgbsruou977jt/sRAP AVIZAVZW10mwQjMP Peak Gr.39mmHg [id number] LEFT VENTRICLE The left ventricle is normal size. There is normal left ventricular wall thickness. The left ventricular systolic function is low normal. The estimated ejection fraction is 50-55% No regional wall motion abnormalities noted.. Transmitral Doppler flow pattern is Grade I-abnormal relaxation pattern. No left ventricle thrombus noted on this study. There is no ventricular septal defect visualized. There is no left ventricular aneurysm. There is no mass noted in the left ventricle. RIGHT VENTRICLE The right ventricle is normal size. There is normal right ventricular wall thickness. The right ventricular systolic function is normal. ATRIA The left atrium is moderately dilated. The right atrium size is normal. The interatrial septum is intact with no evidence for an atrial septal defect. AORTIC VALVE The aortic valve is normal in structure. No aortic regurgitation is present. There is no aortic valvular stenosis. There is no aortic valvular vegetation. MITRAL VALVE The mitral valve is normal in structure. There is no evidence of mitral valve prolapse. There is no mitral valve stenosis. There is mild mitral valve regurgitation noted. TRICUSPID VALVE The tricuspid valve is normal in structure. There is moderate tricuspid valve regurgitation noted. RVSP is calculated at 48 mm Hg. There is no tricuspid valve prolapse or vegetation. There is no tricuspid valve stenosis. PULMONIC VALVE The pulmonary valve is normal in structure. There is mild pulmonic valvular regurgitation. There is no pulmonic valvular stenosis. GREAT VESSELS The aortic root is normal in size. The ascending aorta is normal in size. The pulmonary artery is normal. The IVC is normal in size and collapses >50% with inspiration. PERICARDIAL EFFUSION There is no pericardial effusion. There is no pleural effusion. <Conclusion> The left ventricular systolic function is low normal. The estimated ejection fraction is 50-55% Transmitral Doppler flow pattern is Grade I-abnormal relaxation pattern. The left atrium is moderately dilated. There is mild mitral valve regurgitation noted. There is moderate tricuspid valve regurgitation noted. RVSP is calculated at 48 mm Hg.
[2018-10-22] MEDS: Patient's Own Med (Travoprost [Travatan Z] 1 DROP) EACHEYE SCH (21:19)
[2018-10-22] MEDS ORDERED: Sodium Chloride 0.45% 1,000 ML IV SCH (21:45)
[2018-10-23] MEDS ORDERED: Succinylcholine 200 mg/10 ml Inj IV ONE (07:05)
[2018-10-23] MEDS ORDERED: Propofol 10 mg/ml Inj (20 ML) ONE (07:05)
[2018-10-23] MEDS ORDERED: Phenylephrine 10 mg/ml Inj ONE (07:06)
[2018-10-23] MEDS ORDERED: Etomidate 20 mg/10ml Inj IV ONE (07:06)
[2018-10-23] MEDS ORDERED: Propofol 10 mg/ml 1,000 MG/100 ML VIAL ONE (07:11)
[2018-10-23] MEDS ORDERED: Lidocaine 1% w Epi 1:100,000 Inj ONE (07:23)
[2018-10-23] MEDS ORDERED: Remifentanil 2 MG PDS IV ONE (07:23)
[2018-10-23] MEDS ORDERED: Absorbable Gelatin Sponge Size 12-7 ONE ×2 (07:23→09:37)
[2018-10-23] MEDS ORDERED: Liquid Adhesive TOP ONE (07:23)
[2018-10-23] MEDS ORDERED: Thrombin Topical 5,000 Int Units Spray Kit ONE (07:24)
[2018-10-23] MEDS ORDERED: Bupivacaine 0.5% Inj(30mL) ONE (07:24)
[2018-10-23] MEDS ORDERED: Bacitracin Ointment 30 GM TUBE ONE (07:24)
--- NOTE | 2018-10-23 08:20 | CON ---
DATE: 10/22/2018 REASON FOR CONSULTATION: Intractable back pain. HISTORY OF PRESENT ILLNESS: The patient is an 83-year-old gentleman who states that in 07/2018, he began to get pain in his right leg. It was down basically in the outside of the right leg. It has been steadily progressing since that time. He received a couple of epidural injections which gave him some minimal relief in that he could get around a little better but he states he has always been limping on his right leg ever since the onset. However, Friday or Friday of this week it became so severe he could not put any weight on the right leg at all and came to the emergency room and was admitted. He describes the pain as now radiating from the buttock down primarily the outside of his right leg. It sometimes goes towards the toes, more towards the big toe side. He has some discomfort in the anterior thigh as well. He is now developing some similar symptoms on the left leg. He does not describe any loss of bowel or bladder control. He just states he is absolutely miserable and is not really functional at all with this. PAST MEDICAL HISTORY: Significant for type 2 diabetes, also hypertension, hyperlipidemia, COPD. He has history of cancer of the prostate and underwent a prostatectomy many years ago. PAST SURGICAL HISTORY: Also significant for a cholecystectomy which was a few years ago. MEDICATIONS: As listed on the chart. ALLERGIES: HE IS ALLERGIC TO CIPRO. SOCIAL HISTORY: He states he is a former smoker. PHYSICAL EXAMINATION: MUSCULOSKELETAL: Again, he has no real back pain per se. It is really sciatic notch and down the right leg. He has some weakness of his anterior tib and his EHL on both feet, maybe a little quad weakness on the right side compared to the left. He states sensation is different to light touch in the first webspace of his right foot compared to the left. No clonus is present. Babinski shows toes downgoing. He has fair distal pulses. Straight leg raising also did not give him any discomfort on left side, although secondary to presumed arthritis as well as some hamstring tightness, I could not get full extension on the left side. On the right side at about 45-60 degrees, he was complaining of back pain and then after that would start to get some tingly as he described it in his right foot. LABORATORY DATA: His MRIs were reviewed. He had an MRI done in 2016 that he does not recall having done that did not show any gross abnormalities. He had one done in August 2018. It showed what appeared to be an extruded fragment from L4-L5 going up behind the L4 vertebral body. Presumably, he had his injections after that which he states only gave him minimal relief. However, the MRI done yesterday shows a large extruded fragment down the right side one also, smaller in size, that is central and towards the left side. He also has significant facet cysts at the L4-L5 level, putting pressure on from the dorsal aspect. He has a grade 1 spondylolisthesis of L4 on S1. He has disk desiccation throughout as would be expected in an 83-year-old gentleman. 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 PLAN: I agree with Dr. Thomas that the degree of stenosis here really contraindicates any injection treatments and I think the only way of trying to get this gentleman a fair amount of relief would be to go in surgically and do a full laminectomy to decompress the cyst and remove the what appeared to be extruded fragments. Obviously, as I explained to him with non-diabetics removing disk fragments such as this normally would give 80-90% chance of significant relief of the leg pain. The numbers usually are not as good in diabetics but again his history really goes along with acute compression from the disk being extruded further as the radiologist agreed on his interpretation as well. I explained what the surgery would entail and that we would try and mobilize him fairly quickly. Hopefully, he will get a fair amount of relief if the findings intraoperatively correlate with the findings on the his MRI. I have spoken to Dr. Gillis who tells me pending the gentleman's echo, which he is on the way down for now, he will be medically cleared, so we will try and get this done tomorrow to try and get him some relief as soon as possible and be able to mobilize him better. Thank you for allowing me to participate in the care of your patient. Solitario Myers MD
[2018-10-23] MEDS ORDERED: Lactated Ringer's 1,000 ML IV ONE (08:25)
[2018-10-23] MEDS ORDERED: Dexamethasone 4 mg/1 ml ONE (08:59)
[2018-10-23] MEDS ORDERED: Lidocaine 1% w Epi 1:100,000 Inj INJ ONE (09:00)
[2018-10-23] MEDS: Lidocaine 5% Patch TD SCH (09:22)
[2018-10-23] MEDS: Pantoprazole 40 mg EC Tab PO SCH (09:27)
[2018-10-23] MEDS ORDERED: HEMOSTATIC MATRIX 10 ML DIS.NEEDLE TOP ONE (09:30)
[2018-10-23] MEDS ORDERED: Absorbable Gelatin Sponge Size 12-7 TP ONE (09:40)
[2018-10-23] MEDS ORDERED: Thrombin Topical 5,000 Int Units Spray Kit TOP ONE (09:40)
[2018-10-23] MEDS ORDERED: Bupivacaine 0.5% 50 ML IJ ONE (09:55)
[2018-10-23] MEDS ORDERED: HYDROmorphone 0.5 mg/0.5 ml ISec IVP PRN ×2 (10:17→10:22)
--- NOTE | 2018-10-23 12:14 | RAD ---
Date of service: 10/23/2018 PROCEDURE: CHEST RADIOGRAPH, 1 VIEW HISTORY: surgery COMPARISON: 03/08/2015. FINDINGS: LUNGS: Clear. PLEURA: No pneumothorax or pleural fluid seen. CARDIOVASCULAR: Atherosclerotic calcifications identified primarily aortic arch. No radiographic findings to suggest acute or significant cardiovascular disease. OSSEOUS STRUCTURES: No significant abnormalities. VISUALIZED UPPER ABDOMEN: Normal. OTHER FINDINGS: None. IMPRESSION: No active disease.No significant interval change compared to the prior examination(s).
[2018-10-23] MEDS: Lactated Ringer's 1,000 ML IV SCH ×4 (14:35→20:18)
[2018-10-23] MEDS: GlipiZIDE 10 mg SR Tab PO SCH (16:22)
--- NOTE | 2018-10-23 16:32 | RAD ---
Date of service: 10/23/2018 PROCEDURE: Fluoroscopic assistance in excess of 1 hour. HISTORY: LUMBAR LAMINECTOMY COMPARISON: None TECHNIQUE: Standard protocol for this study/examination. FINDINGS: Total fluoroscopic time (continuous mode) utilized during the procedure 12.2 seconds. Total exam DLP: 3.60 (mGy). IMPRESSION: Greater than 1 hour for fluoroscopy time employed for the procedure/ examination
[2018-10-23] MEDS: Patient's Own Med (Travoprost [Travatan Z] 1 DROP) EACHEYE SCH (22:00)
[2018-10-24] MEDS: Lactated Ringer's 1,000 ML IV SCH ×3 (02:07→07:05)
[2018-10-24 07:28] LABS: BASO % 0.1 % (0.0-2.0); EOS % 0.1 % (0.0-4.0); HEMOGLOBIN 12.3 g/dL (12.0-18.0); LYMPH # 1.1 K/uL (1.0-4.3); LYMPH % 10.9 % (20.0-40.0); MEAN CELL VOLUME 84.6 fl (80.0-94.0); MEAN CORPUSCULAR HEMOGLOBIN 29.2 pg (27.0-31.0); MEAN CORPUSCULAR HGB CONC 34.5 g/dL (33.0-37.0); MEAN PLATELET VOLUME 9.7 fl (7.2-11.7); MONO # 0.8 K/uL (0.0-0.8); MONO % 8.3 % (0.0-10.0); NEUT # 7.9 K/uL (1.8-7.0); NEUT % 80.6 % (50.0-75.0); RBC 4.19 Mil/uL (4.40-5.90); WHITE BLOOD COUNT 9.8 K/uL (4.8-10.8)
[2018-10-24 08:09] LABS: ALB/GLOB RATIO 1.2 (1.0-2.1); ALBUMIN 3.2 g/dL (3.5-5.0); ALT/SGPT 26 U/L (21-72); AST/SGOT 30 U/L (17-59); BLOOD UREA NITROGEN 32 mg/dl (9-20); GFR NON-AFRICAN AMERICAN 53
[2018-10-24] MEDS: Pantoprazole 40 mg EC Tab PO SCH (08:21)
[2018-10-24] MEDS: Lidocaine 5% Patch TD SCH (08:26)
--- NOTE | 2018-10-24 09:58 | CP.PCM.PN ---
Subjective - Date & Time of Evaluation Date of Evaluation: 10/24/18 Time of Evaluation: 09:50 - Subjective Subjective: Sat OOB and took a few steps yesterday evening with PT Reports a mild sense of numbness in both feet No motor deficit Vital signs stable Today's labs stable Surgical team aware of pt's symptoms, plans to see pt today. Objective - Vital Signs/Intake and Output Vital Signs (last 24 hours): Temp Pulse Resp BP Pulse Ox 97.8 F 68 18 161/74 H 95 10/24/18 04:00 10/24/18 08:25 10/24/18 04:00 10/24/18 08:25 10/24/18 04:00 - Medications Medications: Current Medications Aspirin (Ecotrin) 81 mg PO DAILY [facility] Last Admin: 10/24/18 08:20 Dose: 81 mg Docusate Sodium (Colace) 200 mg PO [facility] Last Admin: 10/23/18 21:59 Dose: 200 mg Gabapentin (Neurontin) 100 mg PO TID [facility] Last Admin: 10/24/18 08:20 Dose: 100 mg Glipizide (Glucotrol Xl) 10 mg PO DAILY@1700 [facility] Last Admin: 10/23/18 16:22 Dose: 10 mg Home Med (Travoprost [Travatan Z]) 1 drop EACHEYE [facility] Last Admin: 10/23/18 22:00 Dose: 1 drop Hydromorphone HCl (Dilaudid) 0.5 mg IVP Q4 PRN PRN Reason: Pain, severe (8-10) Lactated Ringer's (Lactated Ringer's) 1,000 mls @ 100 mls/hr IV .Q10H [facility] Last Admin: 10/24/18 06:27 Dose: Not Given Lactated Ringer's (Lactated Ringer's) 1,000 mls @ 100 mls/hr IV .Q10H [facility] Last Admin: 10/24/18 07:05 Dose: Not Given Ketorolac Tromethamine (Toradol) 15 mg IVP Q6 [facility] Stop: 10/28/18 04:16 Last Admin: 10/24/18 09:43 Dose: 15 mg Lidocaine (Lidoderm) 1 ea TD DAILY [facility] Last Admin: 10/24/18 08:26 Dose: Not Given Metoprolol Tartrate (Lopressor) 50 mg PO Q12 [facility] Last Admin: 10/24/18 08:25 Dose: 50 mg Morphine Sulfate (Morphine) 4 mg IVP Q4 PRN PRN Reason: Pain, severe (8-10) Last Admin: 10/22/18 10:53 Dose: 4 mg Pantoprazole Sodium (Protonix Ec Tab) 40 mg PO DAILY [facility] Last Admin: 10/24/18 08:21 Dose: 40 mg Pioglitazone HCl (Actos) 15 mg PO DAILY [facility] Last Admin: 10/24/18 08:20 Dose: 15 mg - Labs Labs: 10/24/18 05:20 10/24/18 05:20
--- NOTE | 2018-10-24 12:09 | CP.PCM.PN ---
Subjective - Date & Time of Evaluation Date of Evaluation: 10/24/18 Time of Evaluation: 12:04 - Subjective Subjective: SPINE - POD #1 Pt OOB in chair. Complains of some numbness in both feet, towards big toes and soles. Voiding. Taking po. Amb in hallway yesterday with PT post-op. Afebrile. BP a little elevated. Sensation present to light touch, although a little "pins and needles" in R first web space. Motor 5/5. Plan: PT to see pt at 1pm today. Pt anxious to go home (elevator apt) and does not want to go to [facility]. I spoke to the therapist who feels pt will be cleared for d/c from his point of view. Will contact Dr. Spear re: ok for discharge. Will recheck in office in 2 weeks. Objective - Vital Signs/Intake and Output Vital Signs (last 24 hours): Temp Pulse Resp BP Pulse Ox 97.8 F 68 18 161/74 H 95 10/24/18 04:00 10/24/18 08:25 10/24/18 04:00 10/24/18 08:25 10/24/18 04:00 - Medications Medications: Current Medications Aspirin (Ecotrin) 81 mg PO DAILY [facility] Last Admin: 10/24/18 08:20 Dose: 81 mg Docusate Sodium (Colace) 200 mg PO [facility] Last Admin: 10/23/18 21:59 Dose: 200 mg Gabapentin (Neurontin) 100 mg PO TID [facility] Last Admin: 10/24/18 08:20 Dose: 100 mg Glipizide (Glucotrol Xl) 10 mg PO DAILY@1700 [facility] Last Admin: 10/23/18 16:22 Dose: 10 mg Home Med (Travoprost [Travatan Z]) 1 drop EACHEYE [facility] Last Admin: 10/23/18 22:00 Dose: 1 drop Hydromorphone HCl (Dilaudid) 0.5 mg IVP Q4 PRN PRN Reason: Pain, severe (8-10) Ketorolac Tromethamine (Toradol) 15 mg IVP Q6 [facility] Stop: 10/28/18 04:16 Last Admin: 10/24/18 09:43 Dose: 15 mg Lidocaine (Lidoderm) 1 ea TD DAILY [facility] Last Admin: 05/18/19 08:26 Dose: Not Given Metoprolol Tartrate (Lopressor) 50 mg PO Q12 [facility] Last Admin: 10/24/18 08:25 Dose: 50 mg Morphine Sulfate (Morphine) 4 mg IVP Q4 PRN PRN Reason: Pain, severe (8-10) Last Admin: 10/22/18 10:53 Dose: 4 mg Pantoprazole Sodium (Protonix Ec Tab) 40 mg PO DAILY [facility] Last Admin: 10/24/18 08:21 Dose: 40 mg Pioglitazone HCl (Actos) 15 mg PO DAILY [facility] Last Admin: 10/24/18 08:20 Dose: 15 mg - Labs Labs: 10/24/18 05:20 10/24/18 05:20
[2018-10-24 15:49] VITALS: BP 134/70; PULSE 60; RESP 19; TEMP 97.6; O2SAT 96
--- NOTE | 2018-10-26 08:28 | OP ---
PROCEDURE DATE: 10/23/2018 PREOPERATIVE DIAGNOSES: Spinal stenosis L4-L5 with right L5 radiculopathy and herniated disk. POSTOPERATIVE DIAGNOSES: Spinal stenosis L4-L5 with right L5 radiculopathy with no extruded herniated disk noted. OPERATIVE PROCEDURE: L4-5 laminectomy with foraminotomy. SURGEONS: Solitario Myers MD ENTRY LEVEL RECEPTIONIST: Jared Mayorga MD ANESTHESIA: General endotracheal tube intubation. DESCRIPTION OF PROCEDURE: The patient was brought to the operating room and general anesthesia was achieved. Intravenous antibiotics were administered and spinal cord monitoring leads were placed throughout the patient's body. Real-time monitoring was done by ecologist technician in the room and remote monitoring done by physician as well. Sequential compression boots were placed in each of the patient's legs. The patient was then gently transferred onto the operating table and placed prone on a Ladarius frame keeping his abdomen free from pressure anteriorly. Care was taken to protect the elbows and knees from pressure points. A Steri drape was used to seal off the patient's perineal region from the operative field and his back was sterilely prepped and draped. A 1% lidocaine with epinephrine was used to infiltrate the site for the incision as located under fluoroscopy. An incision was then made sharply in the midline and taken down to subcutaneous tissue using sharp and blunt dissection. Hemostasis was achieved using electrocautery. The fascia was divided and stripped laterally off the spinous processes and lamina. The pars were identify at each side on each level. Fluoroscopic views demonstrate we were at the level of the 4-5 disk. The Leksell rongeur was used to remove the spinous process and thin down the lamina. It was noted that there appeared to be some laxity at the L5 spinous process, probably indicative of where he had the spondylolisthesis at L5-S1. The laminectomy was carried out in a caudocephalad fashion using Kerrison rongeurs, first in the midline then out laterally. He was noted to have remarkably thickened ligamentum with some thickened tissues in the lateral recess, probably representing facet cyst tissue that appeared on his MRI exam. It was causing a great deal of pressure and it was difficult to mobilize the thecal sac. Once everything had been decompressed, the thecal sac could be moved much more freely. We placed a needle in the 4-5 disk to verify we were at the appropriate level and again, it was confirmed with fluoroscopy. However, while the disk appeared to be bulging, now we could easily run the Aubrey tool along the ventral surface of the dura well above and well below the 4-5 disk level. Our feeling was that what appeared and was thought to be possible disk material on the MRI was merely lot of this thickened granulation and ligamentous tissues. Foraminotomies were carried out to easily pass the Motley tool out the L4 and L5 foramina at each level and each side as well. There was no pressure, in particular above nor below the L5 root on the right which was his more symptomatic side preoperatively. Therefore, due to the laxity that we had noticed earlier and the fact that he has his spondylolisthesis at L5-S1, we elected not to incise and remove more disk and possibly destabilize him from his preoperative state. Again, everything was thoroughly decompressed and there was no obvious pressures on any of the neural structures at the time we finished the decompression. The wound was irrigated with antibiotic solution. Hemostasis was achieved with thrombinated Gelfoam powder as well as bipolar cautery. Some liquid thrombin was placed in the wound as well. The wound was then approximated with interrupted sutures of 0 Vicryl for the muscle and the fascia. After further irrigation, the subcutaneous tissue was approximated with interrupted sutures of 2-0 Vicryl. A 10 mL of 0.5% Marcaine was injected into the paraspinal tissues to help with postoperative pain relief. The skin was approximated with running subcuticular suture of 3-0 Monocryl. Dermabond was applied to seal the closure. Once that was dried, the patient was then gently transferred back on to his bed in a supine position. He was awakened and extubated. He was taken to recovery in stable condition. He tolerated the procedure well. No permanent electrophysiologic abnormalities were noted at the completion of the case. Estimated blood loss was 30 mL and he received 500 mL of lactated Ringers for the operation. Solitario Myers MD
== END 2018-10-24 16:50 | disposition home health service (06) | DRG 517 ==
LOC: H.ER 13:04 → H.ERHOLD 16:58 → H.MEDSURG1 18:45
PROVIDERS: ADMIT Internal Medicine Cardiovascular Disease; ATTEND Internal Medicine Cardiovascular Disease
PROC: 01NB0ZZ Release Lumbar Nerve, Open Approach (ICD-10-PCS; principal; 2018-10-23 07:45)
DX: M51.16 Intervertebral disc disorders with radiculopathy, lumbar region (principal); M54.41 Lumbago with sciatica, right side; J44.9 Chronic obstructive pulmonary disease, unspecified; E11.9 Type 2 diabetes mellitus without complications; M48.061 Spinal stenosis, lumbar region without neurogenic claudication; M43.17 Spondylolisthesis, lumbosacral region; E78.2 Mixed hyperlipidemia; G89.29 Other chronic pain; H40.9 Unspecified glaucoma; I10 Essential (primary) hypertension; Z79.82 Long term (current) use of aspirin; Z85.46 Personal history of malignant neoplasm of prostate; Z87.891 Personal history of nicotine dependence; K29.70 Gastritis, unspecified, without bleeding; M79.661 Pain in right lower leg; Z79.84 Long term (current) use of oral hypoglycemic drugs; Z79.899 Other long term (current) drug therapy